=== PATIENT | female | born 1975 | race Asian ===

== ENCOUNTER 2019-06-14 15:52 | Emergency (ER) | payer OTHER ==
[~2019-06-14] VITALS: Ht 157.5 cm; Wt 48.5 kg
[2019-06-14] MEDS ORDERED: PREDNISOLO15 MG/5 M1 ORAL (16:16)
[2019-06-14 16:23] VITALS: BP 120/88
--- NOTE | 2019-06-14 16:32 | NUR ---
ED Nurse Note:pt. came with c/o bilateral feet swelling no trauma reported, blood sugar was checked
--- NOTE | 2019-06-14 16:54 | Emergency Room Report ---
History of Present Illness General Chief Complaint: Pain Source: Patient Present Illness HPI 44 YO Female presents to the ED c/o paresthesias x 1 month. progressive and now constant. She reports she previously was drinking a lot of beer regularly and admits to having very poor nutrition and diet as she is trying to maintain her current way and states that obesity runs in her family. Patient states that up until very recently she would often skip many meals a day. She denies exercising regularly. Patient denies past medical history she denies history of diabetes. She denies low back pain or nerve injury. She denies fevers or chills. Pain is worse at nighttime and states that her feet are burning in sensation and are extremely sensitive to even light sheets going on top. she states that the last few days she also noticed intermittent symptoms in her hands bilaterally. She denies hx of anxiety or rapid breathing. Pt. reports pain as 10/10 in severity and burning/electrical/tingling in nature. She denies skin color changes. She reports swelling at night time. She denies visual changes. Allergies: Coded Allergies: No Known Allergies (Unverified , 06/14/19) COVID-19 Screening Contact w/high risk pt: No Recent Travel to affected area: No Experienced COVID-19 symptoms?: No Patient History Past Medical History: see triage record Past Surgical History: unable to obtain Pertinent Family History: none Reviewed Nursing Documentation: PMH: Agreed; PSxH: Agreed Nursing Documentation-PMH Past Medical History: No Stated History Review of Systems All Other Systems: negative except mentioned in HPI Physical Exam Vital Signs Date Time Temp Pulse Resp B/P (MAP) Pulse Ox O2 Delivery O2 Flow Rate FiO2 06/14/19 16:06 97.9 109 18 120/88 (99) 96 Room Air Sp02 EP Interpretation: reviewed, normal General Appearance: no apparent distress, alert, GCS 15, non-toxic, thin Head: normocephalic, atraumatic Eyes: bilateral eye normal inspection, bilateral eye PERRL ENT: hearing grossly normal, normal voice Neck: full range of motion Respiratory: chest non-tender, lungs clear, normal breath sounds, speaking full sentences Cardiovascular #1: regular rate, rhythm, no edema, normal capillary refill Cardiovascular #2: 2+ dorsalis pedis (R), 2+ dorsalis pedis (L) Rectal: deferred Genitourinary: normal inspection Musculoskeletal: back normal, normal range of motion, gait/station normal, non- tender Neurologic: alert, motor strength/tone normal, distal neuro normal, oriented x3 , sensory intact, responsive, speech normal, grossly normal Psychiatric: judgement/insight normal Skin: no rash, normal color Medical Decision Making PA Attestation Dr. Chisholm is my supervising Physician whom patient management has been discussed with. Diagnostic Impression: Primary Impression: Paresthesia of both feet Additional Impression: Neuropathic pain of both feet ER Course 44 YO Female presents to the ED c/o paresthesias x 1 month. progressive and now constant. She reports she previously was drinking a lot of beer regularly and admits to having very poor nutrition and diet as she is trying to maintain her current way and states that obesity runs in her family. Patient states that up until very recently she would often skip many meals a day. She denies exercising regularly. Patient denies past medical history she denies history of diabetes. She denies low back pain or nerve injury. She denies fevers or chills. Pain is worse at nighttime and states that her feet are burning in sensation and are extremely sensitive to even light sheets going on top. she states that the last few days she also noticed intermittent symptoms in her hands bilaterally. She denies hx of anxiety or rapid breathing. Pt. reports pain as 10/10 in severity and burning/electrical/tingling in nature. She denies skin color changes. She reports swelling at night time. She denies visual changes. Ddx considered but are not limited to uropathy, paresthesia, electrolyte imbalance, cardiac dysrhythmia, stroke, DVT, cyanocobalamin deficiency. nerve palsy, neuritis Vital signs: are WNL, pt. is afebrile H&PE are most consistent with glove and stocking distribution paresthesia/ neuropathic pain in person with poor nutrition and regular beer consumption. ORDERS: -Accu-check: 108 ED INTERVENTIONS: None required at this time. - D/w pt. to follow up with Neurologist if conservative treatment does not relieve symptoms or for further evaluation. DISCHARGE: At this time pt. is stable for d/c to home. Will provide printed patient care instructions, and any necessary prescriptions. Care plan and follow up instructions have been discussed with the patient prior to discharge. Last Vital Signs Date Time Temp Pulse Resp B/P (MAP) Pulse Ox O2 Delivery O2 Flow Rate FiO2 06/14/19 16:23 97.9 18 120/88 96 Room Air 06/14/19 16:06 109 Disposition: HOME, SELF-CARE Condition: Stable Scripts Gabapentin* (GABAPENTIN*) 100 Mg Capsule 200 MG ORAL BEDTIME, #10 CAP Prov: Marcella Barnett 06/14/19 Cyanocobalamin/Fa/Pyridoxine (B COMPLEX-FOLIC ACID TABLET) 1 Each Tablet 1 TAB ORAL DAILY for 30 Days, #30 TAB 0 Refills Prov: Marcella Barnett 06/14/19 Referrals: [facility] Patient Instructions: Cyanocobalamin, Pyridoxine, and Folate, Paresthesia Additional Instructions: Take medications as directed. Follow up with a Primary Care Provider in 3-5 days For a referral to have NEUROLOGIST Evaluation, even if your symptoms have resolved. --Please review list of primary care clinics, if you do not already have a primary care provider Return sooner to ED if new symptoms occur, or current symptoms become worse. - Please note that this Emergency Department Report was dictated using [employer] coordinator technology software, occasionally this can lead to erroneous entry secondary to interpretation by the dictation equipment. Marcella Barnett Jun 14, 2019 16:54
[2019-06-14] MEDS ORDERED: B COMPLEX-FOLI1 EACH ORAL (16:56)
[2019-06-14] MEDS ORDERED: GABAPENTIN100 MG ORAL (16:56)
[2019-06-14 17:10] VITALS: BP 120/88
--- NOTE | 2019-06-14 17:10 | NUR ---
ER DISCHARGE NOTE: Patient is cleared to be discharged per ERMD, pt is aox4, on room air, with stable vital signs. pt was given dc and prescription instructions, pt was able to verbalize understanding, pt is able to ambulate with steady gait. pt took all belongings.
== END 2019-06-14 17:10 | disposition home or self-care (01) ==
LOC: EMR 16:50
DX: R20.2 Paresthesia of skin (principal); M79.2 Neuralgia and neuritis, unspecified
CPT/HCPCS: 99282